=== PATIENT | female | born 1965 | race Caucasian/White ===

== ENCOUNTER → 2018-03-26 13:34 | Outpatient (CLI) | payer BC, SELFPAY ==
[2018-03-29 08:30] LABS: HPV Reflexed? NOT INDICATED
== END ==
PROVIDERS: Visit Provider Obstetrics & Gynecology
DX: Z12.4 Encounter for screening for malignant neoplasm of cervix (principal)
CPT/HCPCS: 88175; G0145

== ENCOUNTER 2021-09-07 15:00 | Outpatient (CLI) | payer BC, SELFPAY ==
[2021-09-12 13:37] LABS: HPV APTIMA, High Risk Negative (Negative)
== END 2021-09-07 23:59 | disposition home or self-care (01) ==
LOC: LABSPEC 15:02
PROVIDERS: Visit Provider Student in an Organized Health Care Education/Training Program
DX: Z12.4 Encounter for screening for malignant neoplasm of cervix (principal)
CPT/HCPCS: 87624; 88175; G0145